=== PATIENT | male | born 1965 | race Caucasian/White ===

== ENCOUNTER → 2017-02-03 | Day surgery (SDC) | payer OTHER ==
--- NOTE | 2017-02-02 22:38 | MH ---
cc: JOSEPH ACUÑA SAVITHA B. DO DATE OF ADMISSION 02/03/2017 DATE OF 1965 CHIEF COMPLAINT The patient will come for bronchoscopy ___ on 02/03/2017 HISTORY OF THE PRESENT ILLNESS Mr. Sauer is a 51-year-old white male with history of persistent cough going on for 7 weeks or so. He states that he went to the post office to delivery a box and he was trying to cut the packing tape with his mouth. The tape exploded and he swallowed two pieces of it. He tried to cough it up and he coughed up one piece and now he feels that one piece is stuck in his throat. Sometimes he feels a crackling in his throat. Sometimes he has chest pain sensation. Does not have any sputum production or hemoptysis. He tried cough syrup, Cepacol spray did not help him and it is hard for him to go to sleep feeling that something is stuck in his throat. PAST MEDICAL HISTORY Broken bones. MEDICATIONS He takes finasteride. ALLERGIES NO KNOWN DRUG ALLERGIES. SOCIAL HISTORY No history of smoking, alcohol or drug use. 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 FAMILY HISTORY He is single. Lives alone. No children. He has one sister. Mother with drug reaction to tamoxifen and developed a uterine cancer. Father is alive. REVIEW OF SYSTEMS No headache or dizziness. No fever or chills. No hemoptysis. No difficulty swallowing. PHYSICAL EXAMINATION GENERAL: Well built, well-nourished, anxious male not in any acute distress. VITAL SIGNS: Blood pressure 122/70, heart rate 70, respirations 16, weight 189 pounds. Oxygen saturation 98%. HEENT: Examination unremarkable. NECK: Supple. JVP not raised. CHEST: Air entry equal bilaterally. No rhonchi. CARDIOVASCULAR: S1, S2 normal. ABDOMEN: Benign. EXTREMITIES: No edema. IMPRESSION 1. Possible foreign body in his lungs. He feels that he inhaled a piece of tape and he has fluttering sensation and cough. 2. Sore throat. 3. Persistent cough. PLAN He will need bronchoscopy. I explained to him the procedure and the complications including complications of anesthesia, pneumothorax requiring chest tube, bleeding complications, injury to blood vessels, lungs, nerves, arrhythmia, hypoxia which he understood and wants to proceed with it. He will be scheduled for bronchoscopy at [facility]. MD WHITNEY Wadsworth/BIN /9:13 PM /10:32 PM
[~2017-02-03] VITALS: Ht 190.5 cm; Wt 87.0 kg
[~2017-02-03] MED LIST: *RESP: ALBUTEROL 2.5 MG/3 ML NEB (PRN) PERIprocedural Use ONLY NEB ONE; CHLORHEXIDINE GLUCONATE 2 % 1 PACK (2 CLOTHS) TOPICAL PRN; EPINEPHrine HCL (1:1000) 1 MG/ML VIAL ONE; FINA1TAB16 PO; LACTATED RINGER'S 1000 ML IV PRN; LIDOCAINE HCL 1% PF 5 ML SYRINGE OTHER ONE; LIDOCAINE HCL 2% 50 ML VIAL ONE; METOPROLOL TARTRATE 25 MG TAB PO PRN; MIDAZOLAM HCL 2 MG/2 ML VIAL IV ONE; OMEP20TA93 PO; PHENYLEPHRINE HCL 10 MG/ML VIAL IV ONE; POVIDONE IODINE 5% (ANTISEPSIS KIT) 4 APPLICATIONS EACH NARE PRN; PROPOFOL 200 MG/20 ML AMP IV ONE; SODIUM CHLORID 0.9% 500 ML IV PRN
[2017-02-03 10:01] LABS: AUTOMATED NEUTROPHIL # 2.7 TH/MM3 (1.8-7.7); BASOPHIL % 0.5 % (0.0-2.0); EOSINOPHIL # 0.2 TH/MM3 (0-0.4); EOSINOPHIL % 3.9 % (0.0-4.0); HEMATOCRIT 45.5 % (39.0-51.0); HEMO FLAGS AUTO DIFF; LYMPH % 29.5 % (9.0-44.0); LYMPHOCYTE # 1.4 TH/MM3 (1.0-4.8); MEAN CORPUSCULAR HEMOGLOBIN 30.4 PG (27.0-34.0); MEAN CORPUSCULAR HGB CONC 34.6 % (32.0-36.0); MONO % 10.4 % (0.0-8.0); NEUT % 55.7 % (16.0-70.0); PLATELET COUNT 126 TH/MM3 (150-450); RED BLOOD COUNT 5.17 MIL/MM3 (4.50-5.90); WHITE BLOOD COUNT 4.9 TH/MM3 (4.0-11.0)
[2017-02-03 10:07] LABS: APTT (PATIENT) 25.2 SEC (24.3-30.1)
[2017-02-03 10:41] LABS: SCAN/DIFF AUTO DIFF CONFIRMED
--- NOTE | 2017-02-03 11:52 | RADRPT ---
EXAM DATE/TIME: 02/03/2017 11:30 [place] COMPARISON: No previous studies available for comparison. INDICATIONS : Post Bronchoscopy. MEDICAL HISTORY : None. SURGICAL HISTORY : None. ENCOUNTER: Initial ACUITY: 1 day PAIN SCORE: Non-responsive. LOCATION: Bilateral chest FINDINGS: Linear parenchymal opacities in the right mid and left lower lung zones. No definite pneumothorax. Ca rdiomediastinal contours are within normal limits. Osseous structures are intact. CONCLUSION: 1. No pneumothorax. 2. Atelectasis versus scarring in the right mid and left lower lung zones. Lucio Vasquez MD on February 03, 2017 at 11:47 Board Certified Radiologist. This report was verified electronically.
--- NOTE | 2017-02-03 12:06 | MR ---
cc: DALLAS POSEY M.D. Corrected: 02/04/2017 DATE: 02/03/2017 PROCEDURE Bronchoscopy PREOPERATIVE DIAGNOSIS Persistent cough, possible foreign body. POSTOPERATIVE DIAGNOSIS No foreign body seen. PROCEDURE Informed consent was obtained from the patient procedure and complications including complication S pneumothorax when chest tube bleeding complication due to blood vessels, lungs nerves, arrhythmia, positive consented for. PROCEDURE: The patient was brought to operating room under general anesthesia, LMA tube was placed for anesthesia, the patient had bronchoscopy done through endotracheal tube. The vocal cords are normal, trachea is normal, main adonay is sharp. Bronchoscope advanced to the right lung, right upper, middle lower lobe were carefully visualized up to the subsegmental level. All sub-segments were clear. No endobronchial mucosal lesion was seen. No foreign body was seen then bronchoscope with evidence of left lung, the left upper lingula, lower lobe were visualized all sub-segments were visualized. No foreign body was seen. Bronchial washings were done which were sent for culture. The patient tolerated the procedure well. Postprocedure chest x-ray ordered. MD WHITNEY Wadsworth/rene /11:15 AM /11:00 AM TANESHA
[2017-02-03 13:29] VITALS: BP 120/80; PULSE 67; RESP 18; TEMP 97.5; O2SAT 97
--- NOTE | 2017-02-03 17:56 | EKG ---
Date Performed: 02/03/2017 Time Performed: 08:51:24 PTAGE: 51 years EKG: Sinus rhythm MODERATE INTRAVENTRICULAR CONDUCTION DELAY BORDERLINE ECG NO PREVIOUS TRACING DOCTOR: Patric Mishra Interpretating Date/Time 02/03/2017 17:54:53
== END | disposition home or self-care (01) ==
LOC: HSDC 08:22
PROVIDERS: ATTEND Specialist
DX: R05 Cough (principal); R07.9 Chest pain, unspecified; J02.9 Acute pharyngitis, unspecified
CPT/HCPCS: 00520; 31622; 71010; 85025; 85610; 85730; 87015; 87070; 87102; 87116; 87205; 87206; 93005; J2250; J2370; J3010; J7120; J7613; 94664; J0171